=== PATIENT | male | born 1995 | race African-American/Black ===

== ENCOUNTER 2016-08-18 08:48 | Emergency (ER) | payer SELFPAY ==
[~2016-08-18] VITALS: Ht 170.2 cm; Wt 64.0 kg
[2016-08-18 08:57] VITALS: BP 118/78
--- NOTE | 2016-08-18 09:13 | RAD ---
Indication cough. PA and lateral views of the chest were obtained. No prior imaging is available. The heart, pulmonary vessels and mediastinum appear normal. The lungs are clear. There is no pleural fluid or pneumothorax. The bony structures appear grossly intact. IMPRESSION: No acute or focal process is seen in the chest
[2016-08-18] MEDS ORDERED: PROAIR HFA8.5 GM INH (09:26)
[2016-08-18] MEDS ORDERED: AZIT250T PO (09:26)
--- NOTE | 2016-08-18 09:26 | PHYS DOC ---
Past Medical History Past Medical History: No Pertinent History Past Surgical History: No Surgical History Alcohol Use: None Drug Use: None Adult General Chief Complaint Chief Complaint: COUGH HPI HPI Patient is a 20 year old male presents to emergency department stating that he has had a cough and congestion for the last 2 weeks since he went to [employer]. He states now he just has a nagging cough that states when he coughs he has increased upper chest discomfort. He states that he is coughing up yellow phlegm. He denies any fever, chills or any nausea vomiting. Review of Systems Review of Systems Constitutional: Denies fever or chills [] Eyes: Denies change in visual acuity, redness, or eye pain [] HENT: Denies nasal congestion or sore throat [] Respiratory: cough denies shortness of breath [] Cardiovascular: No additional information not addressed in HPI [] GI: Denies abdominal pain, nausea, vomiting, bloody stools or diarrhea [] : Denies dysuria or hematuria [] Musculoskeletal: Denies back pain or joint pain [] Integument: Denies rash or skin lesions [] Neurologic: Denies headache, focal weakness or sensory changes [] Endocrine: Denies polyuria or polydipsia [] Allergies Allergies Allergies Coded Allergies Type Severity Reaction Last Updated Verified No Known Drug Allergies 08/18/16 No Physical Exam Physical Exam Constitutional: Well developed, well nourished, no acute distress, non-toxic appearance. [] HENT: Normocephalic, atraumatic, bilateral external ears normal, oropharynx moist, no oral exudates, nose normal. Bilateral tympanic membranes appear to be normal. Throat with no erythematous no exudate and no redness noted. Eyes: PERRLA, EOMI, conjunctiva normal, no discharge. [] Neck: Normal range of motion, no tenderness, supple, no stridor. [] Cardiovascular:Heart rate regular rhythm, no murmur [] Lungs & Thorax: Bilateral breath sounds clear to auscultation Skin: Warm, dry, no erythema, no rash. [] Back: No tenderness Extremities: No tenderness, no cyanosis, no clubbing, ROM intact, no edema. [] Neurologic: Alert and oriented X 3, normal motor function, normal sensory function, no focal deficits noted. [] Psychologic: Affect normal, judgement normal, mood normal. [] Current Patient Data Vital Signs Vital Signs Date Time Temp Pulse Resp B/P (MAP) Pulse Ox O2 Delivery O2 Flow Rate FiO2 08/18/16 08:57 98.0 81 18 100 Room Air 98.0 EKG EKG [] Radiology/Procedures Radiology/Procedures [][facility] [address] [place] [address] IMAGING REPORT Signed PATIENT: CYNTHIA GREEN ACCOUNT: [id number] : 1995 LOCATION: ER AGE: 20 SEX: M EXAM STATUS: PRE ER ORD. PHYSICIAN: MARTHA CORDOVA APRN REASON: chest discomfort with coughing PROCEDURE: CHEST PA & LATERAL Indication cough. PA and lateral views of the chest were obtained. No prior imaging is available. The heart, pulmonary vessels and mediastinum appear normal. The lungs are clear. There is no pleural fluid or pneumothorax. The bony structures appear grossly intact. IMPRESSION: No acute or focal process is seen in the chest DICTATED and SIGNED BY: KEVIN NDIAYE MD DATE: 08/18/16 0908 CC: MARTHA CORDOVA APRN; NON,STAFF ~ Course & Med Decision Making Course & Med Decision Making Pertinent Labs and Imaging studies reviewed. (See chart for details) Patient's chest x-ray was negative. Patient will be provided with Zithromax, pro -air. He was instructed to take medications as prescribed. Patient will be discharged home in stable condition. Recommended following up primary care physician in 5-7 days. Recommended ibuprofen for pain and discomfort. Warm moist packs to the chest wall area. Patient will be discharged home in stable condition signs symptoms to return back to emergency department as been provided. [] Dragon Disclaimer Dragon Disclaimer This electronic medical record was generated, in whole or in part, using a voice recognition dictation system. Departure Departure Impression: Primary Impression: Bronchitis Disposition: HOME, SELF-CARE Condition: STABLE Referrals: NON,STAFF (PCP) Patient Instructions: Acute Bronchitis, [id number] Additional Instructions: Chest x-ray was negative for any abnormalities. Medication as prescribed. Ibuprofen for pain and discomfort. You may take 800 mg every 8 hours with food stop taking few develop upset stomach. Warm moist packs to the chest wall area. Encourage plenty of fluids. Follow-up to primary care physician in 5-7 days. Return back to emergency department for signs and symptoms of become worse. Scripts Azithromycin (ZITHROMAX) 250 Mg Tablet 250 MG PO DAILY for ANTI-BIOTIC, #6 TAB 0 Refills Take 2 tablets today then 1 tablet daily until completed Prov: MARTHA CORDOVA APRN 08/18/16 Albuterol Sulfate (PROAIR HFA INHALER) 8.5 Gm Hfa.aer.ad 1 PUFF INH PRN Q6HRS Y for SHORTNESS OF BREATH, #1 INHALER 0 Refills Prov: MARTHA CORDOVA APRN 08/18/16 MARTHA CORDOVA APRN Aug 18, 2016 09:26
== END 2016-08-18 09:38 | disposition home or self-care (01) ==
LOC: ER 08:48
DX: J40 Bronchitis, not specified as acute or chronic (principal)
CPT/HCPCS: 71020; 99284